=== PATIENT | male | born 1955 | race Caucasian/White ===

== ENCOUNTER 2017-01-26 15:41 | Inpatient (IN) | payer MEDICARE, MEDICAID ==
[~2017-01-26] VITALS: Ht 170.2 cm; Wt 61.0 kg
[2017-01-26 15:47] VITALS: BP 173/80; PULSE 72; RESP 16; TEMP 98.1; O2SAT 95
[2017-01-26] MEDS ORDERED: GABA300C5 PO ×2 (15:58)
--- NOTE | 2017-01-26 16:22 | PD ---
HPI Chief Complaint: Injury Time Seen by Provider: 15:55 Travel History International Travel<30 days: No Contact w/Intl Traveler<30days: No Traveled to known affect area: No History of Present Illness HPI patient is a 61-year-old male presents emergency department for evaluation of left wrist pain for the past 3 days. Patient states that 3 days ago he fell backwards landing on outstretched hands had left wrist pain since then. He has been able to go to work and worked through his pain but now that it started to swell he decided to come in and be seen. No numbness and tingling, location is left distal radius, no radiation. Context as above. No head neck or back pain. States he does have a history of multiple sclerosis and chronic decreased vision. PFSH Past Medical History Hx Anticoagulant Therapy: No Diabetes: No Diminished Hearing: No Medical other: Yes (MULTIPLE SCLEROSIS) Influenza Vaccination: No Past Surgical History Surgical History: No Previous Surgery Social History Alcohol Use: Yes Tobacco Use: No Allergies-Medications (Allergen,Severity, Reaction): Coded Allergies: No Known Allergies (Unverified , 01/26/17) Reported Meds & Prescriptions Reported Meds & Active Scripts Active Reported Gabapentin 600 Mg Tab 600 Mg PO TID Review of Systems Except as stated in HPI: all other systems reviewed are Neg Physical Exam Narrative GENERAL: Well-developed well-nourished no obvious distress SKIN: Focused skin assessment warm/dry. HEAD: Atraumatic. Normocephalic. EYES: Pupils equal and round. No scleral icterus. No injection or drainage. ENT: No nasal bleeding or discharge. Mucous membranes pink and moist. NECK: Trachea midline. No JVD. CARDIOVASCULAR: Regular rate and rhythm. No murmur appreciated. RESPIRATORY: No accessory muscle use. Clear to auscultation. Breath sounds equal bilaterally. GASTROINTESTINAL: Abdomen soft, non-tender, nondistended. Hepatic and splenic margins not palpable. MUSCULOSKELETAL: Is an obvious deformity at the left wrist, some volar angulation. Pulses motor and sensory intact distally. Cap refill is brisk. All flexor and extensor tendons are intact in the fingers wrist. Small hematoma forming at the distal radius for compartments are soft. Elbow atraumatic. NEUROLOGICAL: Awake and alert. No obvious cranial nerve deficits. Motor grossly within normal limits. Normal speech. PSYCHIATRIC: Appropriate mood and affect; insight and judgment normal. Data Data Last Documented VS Vital Signs Date Time Temp Pulse Resp B/P (MAP) Pulse Ox O2 Delivery O2 Flow Rate FiO2 01/26/17 19:19 62 18 163/83 (109) 97 Room Air 01/26/17 17:44 2.00 01/26/17 15:47 98.1 Orders Orders Wrist, Complete ([id number]) (01/26/17 ) Lidocaine 1% Inj (50 Ml) (Xylocaine 1% I (01/26/17 16:45) Iv Access Insert/Monitor (01/26/17 17:19) Oximetry (01/26/17 17:19) Morphine Inj (Morphine Inj) (01/26/17 17:30) Ondansetron Inj (Zofran Inj) (01/26/17 17:30) Sodium Chloride 0.9% Flush (Ns Flush) (01/26/17 17:30) Propofol 500 Mg/50 Ml Inj (Diprivan 500 (01/26/17 18:00) Sodium Chlorid 0.9% 500 Ml Inj (Ns 500 M (01/26/17 18:00) Propofol 200 Mg/20 Ml Inj (Diprivan 200 (01/26/17 18:00) Wrist, Limited (Ap&Lat) (01/26/17 ) Consult Orthopedic (01/26/17 ) Ct Wrist W/O Contrast (01/26/17 ) Electrocardiogram (01/26/17 ) Chest, Single Ap (01/26/17 ) Admit Order (Ed Use Only) (01/26/17 ) MDM Medical Decision Making Medical Screen Exam Complete: Yes Emergency Medical Condition: Yes Differential Diagnosis Wrist fracture, radius fracture, ulnar fracture, compartment syndrome excluded clinically. Narrative Course Patient roomed emerged permit, after informed consent the patient had reduction performed, suboptimal reduction. X-rays does show comminuted distal radius and ulnar styloid fracture, there are intra-articular components. Pulses motor and sensory were confirmed after the reduction, patient discussed with Dr. Lutz and will be slotted for surgery tomorrow morning. Nothing by mouth after midnight. We'll discuss with the hospitalist on-call for admission to the main hospital. Procedures Procedure Narrative After informed consent, all risks benefits competitions and alternatives were discussed with the patient for both sedation and reduction the patient agreed to the following procedure. ORTHOPEDIC REDUCTION: With procedural sedation being performed by Dr. Chavira the patient underwent a hematoma block with 1% lidocaine, this was insufficient to control his pain, during procedural sedation the patient had standard traction countertraction and the little manipulation of the distal radius with pressure on the Don[place]ue aspect, grossly somewhat straighter the patient was placed in a sugar tong splint, pulse motor and sensory were confirmed after sedation had completed and patient regained consciousness. No untoward event suffered. Diagnosis Primary Impression: Distal radius fracture, left Qualified Codes: S52.572A - Other intraarticular fracture of lower end of left radius, initial encounter for closed fracture Admitting Information Admitting Physician Requests: Admit Scripts Hydrocodone/Acetaminophen (Hydrocodone-Acetamin 10-325 mg) 10 Mg-325 Mg Tablet 1 TAB PO Q6H Y for PAIN LESS THAN 5 ON SCALE, #50 TAB Prov: William Robles MD 01/27/17 Hydrocodone-Acetaminophen (M[place]arley) 10-325 Mg Tab 1 TAB PO Q4H Y for PAIN, #50 TAB 0 Refills Prov: William Robles MD 01/27/17 Condition: Stable Richmond Durán MD Jan 26, 2017 16:22
[2017-01-26] MEDS ORDERED: LIDOCAINE HCL 1% 50 ML VIAL INFIL ONE (16:45)
--- NOTE | 2017-01-26 17:04 | RADRPT ---
EXAM DATE/TIME: 01/26/2017 16:40 [facility] COMPARISON: No previous studies available for comparison. INDICATIONS : Trauma, fall. MEDICAL HISTORY : None. SURGICAL HISTORY : None. ENCOUNTER: Initial ACUITY: 1 day PAIN SCORE: 10/10 LOCATION: Left wrist FINDINGS: There is a fracture of the distal radius with intra-articular extension and 45 ventral in relation o f the apex of the fracture. Ulnar styloid fracture is also present. The carpal bones are intact. CONCLUSION: 1. Fracture distal radius and ulna as above Bill Marion MD on January 26, 2017 at 17:01 Board Certified Radiologist. This report was verified electronically.
[2017-01-26] MEDS ORDERED: MORPHINE SULFATE 4 MG/ML INJ IV PUSH ONE (17:30)
[2017-01-26] MEDS ORDERED: SODIUM CHLORIDE 0.9% FLUSH 10 ML FLUSH IV FLUSH PRN ×2 (17:30→20:00)
[2017-01-26] MEDS ORDERED: ONDANSETRON HCL 4 MG/2 ML VIAL IVP ONE (17:30)
[2017-01-26 17:44] VITALS: BP 165/96; PULSE 70; RESP 18; O2SAT 97
[2017-01-26 17:45] VITALS: RESP 18; O2SAT 97
[2017-01-26] MEDS ORDERED: SODIUM CHLORID 0.9% 500 ML INJ 500 ML IV ONE (18:00)
[2017-01-26] MEDS ORDERED: PROPOFOL 200 MG/20 ML AMP IV ONE (18:00)
[2017-01-26] MEDS ORDERED: PROPOFOL 500 MG/50 ML BTL IV ONE (18:00)
--- NOTE | 2017-01-26 18:39 | RADRPT ---
EXAM DATE/TIME: 01/26/2017 18:23 [facility] COMPARISON: WRIST LEFT COMPLETE ([id number]), January 26, 2017, 16:40. INDICATIONS : Post reduction left wrist. MEDICAL HISTORY : None. SURGICAL HISTORY : None. ENCOUNTER: Initial ACUITY: 1 day PAIN SCORE: 7/10 LOCATION: Left distal wrist. FINDINGS: There is persistent displacement and dorsal angulation of the distal radial fragments status post yordy sed reduction. Acute mildly displaced ulnar styloid process fracture is also noted. CONCLUSION: 1. Persistent displacement and dorsal angulation of the distal radial fragments status post closed re duction. 2. Acute mildly displaced ulnar styloid process fracture. Richmond Bates MD on January 26, 2017 at 18:36 Board Certified Radiologist. This report was verified electronically.
[2017-01-26 19:19] VITALS: BP 163/83; PULSE 62; RESP 18; O2SAT 97
--- NOTE | 2017-01-26 19:23 | PD ---
Physical Exam Narrative GENERAL: SKIN: Warm and dry. HEAD: Atraumatic. Normocephalic. EYES: Pupils equal and round. No scleral icterus. No injection or drainage. ENT: No nasal bleeding or discharge. Mucous membranes pink and moist. NECK: Trachea midline. No JVD. CARDIOVASCULAR: Regular rate and rhythm. RESPIRATORY: No accessory muscle use. Clear to auscultation. Breath sounds equal bilaterally. GASTROINTESTINAL: Abdomen soft, non-tender, nondistended. MUSCULOSKELETAL: Extremities without clubbing, cyanosis, or edema...DEFORMITY TO LEFT WRIST DORSAL ASPECT NEUROLOGICAL: Awake and alert. No obvious cranial nerve deficits. Motor grossly within normal limits. Five out of 5 muscle strength in the arms and legs. Normal speech. PSYCHIATRIC: Appropriate mood and affect; insight and judgment normal. Data Data Last Documented VS Vital Signs Date Time Temp Pulse Resp B/P (MAP) Pulse Ox O2 Delivery O2 Flow Rate FiO2 01/26/17 17:46 18 01/26/17 17:45 97 Room Air 01/26/17 17:44 70 2.00 01/26/17 15:47 98.1 Orders Orders Wrist, Complete ([id number]) (01/26/17 ) Lidocaine 1% Inj (50 Ml) (Xylocaine 1% I (01/26/17 16:45) Iv Access Insert/Monitor (01/26/17 17:19) Oximetry (01/26/17 17:19) Morphine Inj (Morphine Inj) (01/26/17 17:30) Ondansetron Inj (Zofran Inj) (01/26/17 17:30) Sodium Chloride 0.9% Flush (Ns Flush) (01/26/17 17:30) Propofol 500 Mg/50 Ml Inj (Diprivan 500 (01/26/17 18:00) Sodium Chlorid 0.9% 500 Ml Inj (Ns 500 M (01/26/17 18:00) Propofol 200 Mg/20 Ml Inj (Diprivan 200 (01/26/17 18:00) Wrist, Limited (Ap&Lat) (01/26/17 ) Consult Orthopedic (01/26/17 ) [facility] Medical Record Reviewed: Yes Supervised Visit with HELENA: No Narrative Course MALLAMPATI 1, DURING OBSERVATION PERIOD, PATIENT MAINTAINED HIS AIRWAY WITH SPONTANEOUS BREATH AND MAINTAINED PULSE OX 94% AT ITS LOWEST, AND WHEN PATIENT WAS AT ITS DEEPEST SEDATION, SUPPLEMENTAL OXYGEN AND JAW THRUST IMPROVED PULSE OX TO 96% AND ONLY REQUIRED THIS MANEUVER ONCE DURING THE PROCEDURE. PATIENT RECOVERED WELL ON HIS OWN WITH 96-98 % AT FIRST ON SUPPLEMENTAL OXYGEN BUT EVENTUALLY OXYGEN FREE PATIENT MAINTAINED NORMAL PULSE OX AT 96-99% RA WITH GOOD PLETH WAVE. SEE DR BENSON'S NOTE FOR MORE COMPLETE DICTATION THIS IS A CONSCIOUS SEDATION NOTE. Procedures Procedure Narrative The patient was placed on a nurse monitoring and pulse oximetry. An ambu bag and suction was immediately available at bedside. The patient was monitored by the nurse. Oxygen saturation, heart rate and blood pressure were monitored. Procedural sedation was acheived using [PROPOFOL 100MG]. The patient was observed until awake and alert. Procedural Sedation time in attendance was [30] minutes. Diagnosis Primary Impression: S/P CONSCIOUS SEDATION WITH SUCCESSFUL RECOVERY Hector Chavira MD Jan 26, 2017 19:23
[2017-01-26] MEDS ORDERED: GABA600T PO (19:38)
[2017-01-26] MEDS ORDERED: ONDANSETRON HCL 4 MG/2 ML VIAL IVP PRN (20:00)
[2017-01-26] MEDS ORDERED: MORPHINE SULFATE 2 MG/ML INJ IV PUSH PRN (20:00)
[2017-01-26] MEDS ORDERED: NALOXONE HCL 0.4 MG/ML AMP IV PUSH PRN (20:00)
--- NOTE | 2017-01-26 20:37 | RADRPT ---
EXAM DATE/TIME: 01/26/2017 19:41 [facility] COMPARISON: No previous studies available for comparison. INDICATIONS : Trauma, fall. RADIATION DOSE: 13.01 CTDIvol (mGy) MEDICAL HISTORY : None SURGICAL HISTORY : None. ENCOUNTER: Initial ACUITY: 1 week PAIN SCALE: 10/10 LOCATION: Left wrist TECHNIQUE: Volumetric scanning of the wrist was performed. Using automated exposure control and adjustment of t he mA and/or kV according to patient size, radiation dose was kept as low as reasonably achievable to obtain optimal diagnostic quality images. DICOM format image data is available electronically for review and comparison. FINDINGS: An acute comminuted minimally impacted fracture of the distal radius is noted. There is involvement o f the articular surface with approximately 1 mm of articular step off noted. There is also an acute m ildly displaced ulnar styloid process fracture. The carpal bones are intact without fracture or dislo cation. CONCLUSION: 1. Acute comminuted minimally impacted fracture of the distal radius with approximately 1 mm of artic ular step-off noted. 2. Acute mildly displaced ulnar styloid process fracture. Richmond Bates MD on January 26, 2017 at 20:32 Board Certified Radiologist. This report was verified electronically.
[2017-01-26] MEDS ORDERED: GABAPENTIN 300 MG CAP PO ONE ×3 (20:45→23:00)
[2017-01-26] MEDS ORDERED: GABAPENTIN 100 MG CAP PO ONE (20:45)
[2017-01-26] MEDS: SODIUM CHLORIDE 0.9% FLUSH 10 ML FLUSH IV FLUSH SCH (20:50)
[2017-01-26 21:38] VITALS: BP 138/87; PULSE 69; RESP 18; O2SAT 96
--- NOTE | 2017-01-26 21:54 | RADRPT ---
EXAM DATE/TIME: 01/26/2017 19:38 [facility] COMPARISON: No previous studies available for comparison. INDICATIONS : Short of breath. MEDICAL HISTORY : None. SURGICAL HISTORY : None. ENCOUNTER: Initial ACUITY: 1 day PAIN SCORE: 0/10 LOCATION: Bilateral chest FINDINGS: A single view of the chest demonstrates the lungs to be symmetrically aerated without evidence of mas s, infiltrate or effusion. Calcified granulomas noted within the left midlung field. The cardiomedia stinal contours are unremarkable. Osseous structures are intact. CONCLUSION: No acute focal pulmonary infiltrate or pulmonary vascular congestion. Calcified granuloma within the left midlung field. Richmond Bates MD on January 26, 2017 at 21:52 Board Certified Radiologist. This report was verified electronically.
[2017-01-27 00:07] VITALS: BP 140/88
[2017-01-27 00:30] VITALS: BP 149/80; PULSE 57; RESP 20; TEMP 98.9; O2SAT 97
[2017-01-27] MEDS ORDERED: INSULIN HUMAN REGULAR 1,000 UNITS/10 ML VIAL SQ PRN (01:00)
[2017-01-27] MEDS ORDERED: METOPROLOL TARTRATE 25 MG TAB PO PRN (01:00)
[2017-01-27] MEDS ORDERED: POVIDONE IODINE 5% (ANTISEPSIS KIT) 4 APPLICATIONS EACH NARE PRN (01:00)
[2017-01-27] MEDS ORDERED: SODIUM CHLORID 0.9% 500 ML IV PRN (01:00)
[2017-01-27] MEDS ORDERED: CHLORHEXIDINE GLUCONATE 2 % 1 PACK (2 CLOTHS) TOPICAL PRN (01:00)
[2017-01-27] MEDS ORDERED: LACTATED RINGER'S 1000 ML IV PRN (01:00)
[2017-01-27 04:00] VITALS: BP 139/76; PULSE 56; RESP 20; TEMP 98.2; O2SAT 97
[2017-01-27] MEDS ORDERED: ACETAMINOPHEN 1000 MG/100 ML 100 ML IV ONE (05:55)
[2017-01-27 06:00] LABS: AUTOMATED NEUTROPHIL # 3.2 TH/MM3 (1.8-7.7); BASOPHIL % 0.5 % (0.0-2.0); EOSINOPHIL # 0.2 TH/MM3 (0-0.4); EOSINOPHIL % 2.9 % (0.0-4.0); HEMATOCRIT 37.2 % (39.0-51.0); HEMO FLAGS DIFF FINAL; LYMPH % 21.4 % (9.0-44.0); LYMPHOCYTE # 1.1 TH/MM3 (1.0-4.8); MEAN CELL VOLUME 93.8 FL (80.0-100.0); MEAN CORPUSCULAR HEMOGLOBIN 31.7 PG (27.0-34.0); MEAN CORPUSCULAR HGB CONC 33.8 % (32.0-36.0); MONO % 15.5 % (0.0-8.0); NEUT % 59.7 % (16.0-70.0); PLATELET COUNT 291 TH/MM3 (150-450); RED BLOOD COUNT 3.96 MIL/MM3 (4.50-5.90); RED CELL DISTRIBUTION WIDTH 12.5 % (11.6-17.2); WHITE BLOOD COUNT 5.3 TH/MM3 (4.0-11.0)
--- NOTE | 2017-01-27 06:12 | PD.CONS ---
HPI Service Orthopedic Surgeons Consult Requested By Medical staff, attending physician Reason for Consult Fracture of the left wrist Primary Care Physician No Primary Care Physician Admission Diagnosis Wrist Fracture. Diagnoses: Chief Complaint: Left wrist pain History of Present Illness This patient is a 61-year-old white male who approximately 3 days ago tripped and fell on outstretched left wrist. He had swelling and pain but was trying to splint this , but he noted increasing discomfort. He presented to [facility]. He is evaluated and treated in the emergency room. He was transferred to [facility]. I have been asked to see him in consultation for his left wrist fracture Review of Systems Constitutional: DENIES: Diaphoretic episodes, Fatigue, Fever, Weight gain, Weight loss, Chills, Dizziness, Change in appetite, Night Sweats Endocrine: DENIES: Heat/cold intolerance, Polydipsia, Polyuria, Polyphagia Eyes: COMPLAINS OF: Blurred vision Ears, nose, mouth, throat: DENIES: Tinnitus, Hearing loss, Vertigo, Nasal discharge, Oral lesions, Throat pain, Hoarseness, Ear Pain, Running Nose, Epistaxis, Sinus Pain, Toothache, Odynophagia Respiratory: DENIES: Apneas, Cough, Snoring, Wheezing, Hemoptysis, Sputum production, Shortness of breath Cardiovascular: DENIES: Chest pain, Palpitations, Syncope, Dyspnea on Exertion , PND, Lower Extremity Edema, Orthopnea, Claudication Gastrointestinal: DENIES: Abdominal pain, Black stools, Bloody stools, Constipation, Diarrhea, Nausea, Vomiting, Difficulty Swallowing, Anorexia Genitourinary: DENIES: Sexual dysfunction, Urinary frequency, Urinary incontinence, Urgency, Hematuria, Dysuria, Nocturia, Penile Discharge, Testicular Pain, Testicular Swelling Musculoskeletal: COMPLAINS OF: Joint pain Integumentary: DENIES: Abnormal pigmentation, Nail changes, Pruritus, Rash Immunologic/allergic: DENIES: Eczema, Urticaria Neurologic: COMPLAINS OF: Poor Balance Psychiatric: DENIES: Anxiety, Confusion, Mood changes, Depression, Hallucinations, Agitation, Suicidal Ideation, Homicidal Ideation, Delusions Past Family Social History Past Medical History MS Allergies: Coded Allergies: No Known Allergies (Unverified , 01/26/17) Active Ordered Medications Current Medications Medications (Trade) Dose Ordered Sig/Bel Route Start Time Stop Time Status Last Admin (NS Flush) 2 ml UNSCH PRN IV FLUSH 01/26/17 20:00 (NS Flush) 2 ml BID IV FLUSH 01/26/17 21:00 01/26/17 20:50 (Zofran Inj) 4 mg Q6H PRN IVP 01/26/17 20:00 (Narcan Inj) 0.4 mg UNSCH PRN IV PUSH 01/26/17 20:00 (Morphine Inj) 2 mg Q3H PRN IV PUSH 01/26/17 20:00 Lactated Ringer's 1,000 ml @ 30 mls/hr Q24H PRN IV 01/27/17 01:00 01/30/17 00:59 01/27/17 03:02 Sodium Chloride 500 ml @ 30 mls/hr [id number] PRN IV 01/27/17 01:00 01/30/17 00:59 (Lopressor) 25 mg [employer] PRN PO 01/27/17 01:00 01/30/17 00:59 (Betadine 5% Antisepsis Kit) 1 applic [employer]IST PRN EACH NARE 01/27/17 01:00 01/30/17 00:59 (Chlorhexidine 2% Cloth) 3 pack [employer] PRN TOPICAL 01/27/17 01:00 01/30/17 00:59 (NovoLIN R INJ) See Protocol Table ... [employer]ATIONS [employer]IST PRN SQ 01/27/17 01:00 01/30/17 00:59 Reported Meds & Active Scripts Active Reported Gabapentin 600 Mg Tab 600 Mg PO TID Physical Exam Vital Signs Vital Signs Date Time Temp Pulse Resp B/P (MAP) Pulse Ox O2 Delivery O2 Flow Rate FiO2 01/27/17 04:00 98.2 56 20 139/76 (97) 97 01/27/17 00:30 98.9 57 20 149/80 (103) 97 01/27/17 00:07 70 18 140/88 (105) 96 01/26/17 21:38 69 18 138/87 (104) 96 Room Air 01/26/17 19:19 62 18 163/83 (109) 97 Room Air 01/26/17 17:46 18 126/17 17:45 18 97 Room Air 01/26/17 17:44 70 18 165/96 (119) 97 Nasal Cannula 2.00 01/26/17 15:47 98.1 72 16 173/80 (111) 95 Physical Exam HEENT: Normocephalic atraumatic pupils equal round reactive. NECK: Supple. No abnormal masses. Full range of motion. CHEST: Clear to auscultation with no rales or rhonchi's or wheezes. HEART: Regular rate and rhythm. No murmurs. ABDOMEN: Soft, nontender, no masses. Normal active bowel sounds. GENITOURINARY: Deferred. Musculoskeletal: Left wrist is in a splint. Sensation is almost normal. Mild swelling. Normal alignment. Laboratory Laboratory Tests Test 01/27/17 05:40 Imaging X-rays and CT of the left wrist shows evidence of an intra-articular distal radius fracture with displacement. This is a 3 part fracture. This is consistent with radiologist's interpretation Assessment & Plan Assessment and Plan Intra-articular fracture left distal radius, displaced, three-part. PLAN: Surgical treatment: Open treatment internal fixation left wrist fracture with volar plates and screws. Consent: There are risks with surgery including infection, bleeding, loss of motion, need for further surgery, neurologic or vascular injury, failure of fixation, nonunion. He understands these issues and wishes to proceed forward with surgery as outlined above. Surgical treatment today William Robles MD Jan 27, 2017 06:12
[2017-01-27 06:15] LABS: BICARBONATE 28.2 MEQ/L (21.0-32.0); POTASSIUM 3.8 MEQ/L (3.5-5.1)
[2017-01-27] MEDS ORDERED: ceFAZolin 2 GM PREMIX 50 ML ONE (06:42)
[2017-01-27] MEDS ORDERED: LACTATED RINGER'S 1000 ML INJ 1,000 ML IV SCH (07:17)
[2017-01-27] MEDS ORDERED: HYDR-3366 PO (07:19)
[2017-01-27] MEDS ORDERED: HYDR-3583 PO (07:22)
[2017-01-27] MEDS ORDERED: NALOXONE HCL 0.4 MG/ML AMP IV PUSH PRN (07:30)
[2017-01-27] MEDS ORDERED: MAGNESIUM HYDROXIDE SUSP 30 ML CUP PO PRN (07:30)
[2017-01-27] MEDS ORDERED: MORPHINE SULFATE 8 MG/ML INJ IV PUSH PRN (07:30)
[2017-01-27] MEDS ORDERED: MORPHINE SULFATE 30 MG/30 ML PCA IV SCH (07:30)
[2017-01-27] MEDS ORDERED: ONDANSETRON HCL 4 MG/2 ML VIAL IVP PRN (07:30)
[2017-01-27] MEDS ORDERED: diphenhydrAMINE HCL 25 MG CAP PO PRN (07:30)
[2017-01-27] MEDS ORDERED: ACETAMINOPHEN/HYDROcodone 325 MG/10 MG TAB PO PRN ×2 (07:30)
[2017-01-27] MEDS ORDERED: Post-op Orders (for Pharmacy) MISC XX ONE (07:30)
[2017-01-27] MEDS ORDERED: DO NOT ADM ANY ANTICOAGULANT DRUGS PRN (07:38)
[2017-01-27] MEDS ORDERED: *morphine SULFATE 8 MG/ML PERIprocedure ONLY ONE ×2 (07:47→08:23)
[2017-01-27 09:00] VITALS: BP 166/87; PULSE 67; RESP 19; TEMP 97.4; O2SAT 95
[2017-01-27] MEDS ORDERED: MULTIVITAMINS/MINERALS THERAPEUTIC TAB PO SCH (09:00)
[2017-01-27] MEDS: SODIUM CHLORIDE 0.9% FLUSH 10 ML FLUSH IV FLUSH SCH (09:00)
[2017-01-27] MEDS ORDERED: DOCUSATE SODIUM 50 MG/SENNA 8.6 MG TAB PO SCH (09:00)
--- NOTE | 2017-01-27 09:19 | RADRPT ---
EXAM DATE/TIME: 01/27/2017 07:09 [facility] COMPARISON: WRIST LEFT LIMITED (AP & LAT), January 26, 2017, 18:23. INDICATIONS : Fracture Lt. wrist ORIF. MEDICAL HISTORY : None. SURGICAL HISTORY : None. ENCOUNTER: Initial ACUITY: 1 day PAIN SCORE: Non-responsive. LOCATION: Left wrist FINDINGS: There are postsurgical changes with operative reduction and internal fixation of the previously seen fracture. The alignment is anatomic. CONCLUSION: Postsurgical changes as above. Bill Marion MD on January 27, 2017 at 9:17 Board Certified Radiologist. This report was verified electronically.
--- NOTE | 2017-01-27 10:42 | PD.OP ---
cc: William Robles MD Operative Report Date of Surgery: Jan 27, 2017 Preoperative Diagnosis: Left distal radius fracture, three-part, intra-articular Postoperative Diagnosis: Same Procedure: Open treatment internal fixation left distal radius fracture with volar plate and screws, 3 part fracture Anesthesia: Gen. Surgeon: William Robles Training Designer(s): Staff Operation and Findings: EBL: 50 cc INDICATION: This patient is a 61-year-old white male who 3 or 4 days ago sustained the above fracture. He presents for surgical treatment PROCEDURE: The patient was brought to the operating room and anesthetized in the supine position. This patient was positioned with the arm on the arm table. Fluoroscopy was used for visualization. A timeout was done. Antibiotics were given within 1 hour time window. The left arm was scrubbed with alcohol followed by Hibiclens followed by ChloraPrep and draped sterilely. A tourniquet was placed after exsanguination the tourniquet was inflated to 250 mmHg. A volar incision was made along the flexor carpi radialis tendon. The pronator quadratus was lifted from its radial attachment. The fracture was visualized. This was brought into a reduced position and held. A volar plate was positioned and held provisionally. Intraoperative x-ray showed anatomic alignment. Multiple distal locking screws were placed as well as shaft screws. The fracture was reduced anatomically. Intraoperative x-rays were obtained confirming the same. The tourniquet was let down. Hemostasis was controlled with the bipolar cautery. The wound was dry. The fascia was closed with 2-0 Vicryl suture. The skin and subcutaneous tissue was approximated with interrupted 3-0 nylon in a mattress fashion. A sterile dressing and a splint was applied. The patient was awakened and taken to the recovery room in satisfactory condition. COMPANY: [employer] medium 3-hole volar plate William Robles MD Jan 27, 2017 10:41
[2017-01-27 12:00] VITALS: BP 109/69; PULSE 90; RESP 19; TEMP 97.1; O2SAT 95
[2017-01-27] MEDS ORDERED: PCA - TOTAL MG MORPHINE DELIVERED PER SHIFT SCH (14:00)
--- NOTE | 2017-01-27 15:53 | HHI.HP ---
HPI Service [facility] ([place], [place])ists Primary Care Physician No Primary Care Physician Admission Diagnosis Wrist Fracture. Diagnoses: Travel History International Travel<30 Days: No Contact w/Intl Traveler <30 Da: No Traveled to Known Affected Are: No History of Present Illness This is a 61-year-old white male with states that approximately 3 days ago he tripped and fell on an outstretched left wrist. The patient states that he had swelling and pain and was trying to splint the wrist but he noticed increased discomfort. The pain was 10 over 10, nonradiating and localized to the left breast. The patient was seen in emergency department in [place] and transferred to [facility] in [place]. Orthopedic surgery saw the patient in consultation today and the patient underwent ORIF of the left wrist fracture. The patient currently denies any chest pain, shortness of breath, nausea, vomiting, diarrhea, dizziness, fevers, chills and he states that the pain is much improved. Review of Systems As per HPI, other systems reviewed by me and negative Past Family Social History Past Medical History MS Past Surgical History Denies Reported Medications Reported Meds & Active Scripts Active Hydrocodone-Acetamin 10-325 mg (Hydrocodone/Acetaminophen) 10 Mg-325 Mg Tablet 1 Tab PO Q6H PRN Crestline (Hydrocodone-Acetaminophen) 10-325 Mg Tab 1 Tab PO Q4H PRN Reported Gabapentin 600 Mg Tab 600 Mg PO TID Allergies: Coded Allergies: No Known Allergies (Unverified , 01/26/17) Active Ordered Medications Current Medications Medications (Trade) Dose Ordered Sig/Bel Route Start Time Stop Time Status Last Admin (NS Flush) 2 ml UNSCH PRN IV FLUSH 01/26/17 20:00 (NS Flush) 2 ml BID IV FLUSH 01/26/17 21:00 01/26/17 20:50 (Zofran Inj) 4 mg Q6H PRN IVP 01/26/17 20:00 (Narcan Inj) 0.4 mg UNSCH PRN IV PUSH 01/26/17 20:00 (Morphine Inj) 2 mg Q3H PRN IV PUSH 01/26/17 20:00 Lactated Ringer's 1,000 ml @ 30 mls/hr Q24H PRN IV 01/27/17 01:00 01/30/17 00:59 01/27/17 03:02 Sodium Chloride 500 ml @ 30 mls/hr [id number] PRN IV 01/27/17 01:00 01/30/17 00:59 (Lopressor) 25 mg FOLD SKIVER PRN PO 01/27/17 01:00 01/30/17 00:59 (Betadine 5% Antisepsis Kit) 1 applic FOLD SKIVER PRN EACH NARE 01/27/17 01:00 01/30/17 00:59 (Chlorhexidine 2% Cloth) 3 pack FOLD SKIVER PRN TOPICAL 01/27/17 01:00 01/30/17 00:59 (NovoLIN R INJ) See Protocol Table ... FOLD SKIVER PRN SQ 01/27/17 01:00 01/30/17 00:59 Lactated Ringer's 1,000 ml @ 85 mls/hr [id number] IV 01/27/17 07:17 01/27/17 08:15 (Larisa-Colace) 1 tab BID PO 01/27/17 09:00 01/27/17 11:11 (Milk Of Magnesia Liq) 10 ml Q12H PRN PO 01/27/17 07:30 Cefazolin Sodium 1000 mg/Sodium Chloride 100 ml @ 200 mls/hr Q8H IV 01/27/17 15:00 (Crestline 10-325 Mg) 1 tab Q6H PRN PO 01/27/17 07:30 (Crestline 10-325 Mg) 2 tab Q6H PRN PO 01/27/17 07:30 (Morphine Inj) 5 mg Q4H PRN IV PUSH 01/27/17 07:30 (Zofran Inj) 4 mg Q4H PRN IVP 01/27/17 07:30 (Theragran M Tab) 1 tab DAILY PO 01/27/17 09:00 01/27/17 11:11 (Benadryl) 25 mg Q6H PRN PO 01/27/17 07:30 (Ambien) 5 mg HS PRN PO 01/27/17 21:00 (Narcan Inj) 0.4 mg UNSCH PRN IV PUSH 01/27/17 07:30 (Morphine 1 Mg/ ml TREAD CUTTER) 30 mg UNSCH IV 01/27/17 07:30 01/27/17 08:31 TREAD CUTTER Dosage Infused (Pha) 1 Q8HR .XX 01/27/17 14:00 Miscellaneous Information ALL NURSING DEPARTME... UNSCH PRN .XX 01/27/17 07:38 01/28/17 07:37 Family History Father from a massive heart attack in his 60's. Social History Denies smoking, driking alcohol or using illegal drugs Physical Exam Vital Signs Vital Signs Date Time Temp Pulse Resp B/P (MAP) Pulse Ox O2 Delivery O2 Flow Rate FiO2 01/27/17 09:00 97.4 67 19 166/87 (113) 95 01/27/17 08:31 16 01/27/17 08:30 97.8 64 18 152/89 (110) 96 Room Air 01/27/17 08:15 69 18 155/88 (110) 94 Room Air 01/27/17 08:00 73 16 150/96 (114) 95 Room Air 01/27/17 07:45 79 16 150/93 (112) 94 Room Air 01/27/17 07:38 97.5 83 16 158/92 (114) 94 Room Air 01/27/17 04:00 98.2 56 20 139/76 (97) 97 01/27/17 00:30 98.9 57 20 149/80 (103) 97 01/27/17 00:07 70 18 140/88 (105) 96 01/26/17 21:38 69 18 138/87 (104) 96 Room Air 01/26/17 19:19 62 18 163/83 (109) 97 Room Air 01/26/17 17:46 18 01/26/17 17:45 18 97 Room Air 01/26/17 17:44 70 18 165/96 (119) 97 Nasal Cannula 2.00 Physical Exam GENERAL: This is a well-nourished, well-developed patient, in no apparent distress. SKIN: No rashes, ecchymoses or lesions. Cool and dry. HEAD: Atraumatic. Normocephalic. No temporal or scalp tenderness. EYES: Pupils equal round and reactive. Extraocular motions intact. No scleral icterus. No injection or drainage. ENT: Nose without bleeding, purulent drainage or septal hematoma. Throat without erythema, tonsillar hypertrophy or exudate. Uvula midline. Airway patent. NECK: Trachea midline. No JVD or lymphadenopathy. Supple, nontender, no meningeal signs. CARDIOVASCULAR: Regular rate and rhythm without murmurs, gallops, or rubs. RESPIRATORY: Clear to auscultation. Breath sounds equal bilaterally. No wheezes , rales, or rhonchi. GASTROINTESTINAL: Abdomen soft, non-tender, nondistended. No hepato-splenomegaly , or palpable masses. No guarding. MUSCULOSKELETAL: Left arm on a sliding, wrapped around. There is good capillary refills on left fingers. Other Extremities without clubbing, cyanosis , or edema. No joint tenderness, effusion, or edema noted. No calf tenderness. Negative Homans sign bilaterally. NEUROLOGICAL: Awake and alert. Cranial nerves II through XII intact. Motor and sensory grossly within normal limits. Five out of 5 muscle strength in all muscle groups. Normal speech. Laboratory Laboratory Tests Test 01/27/17 05:40 White Blood Count 5.3 Red Blood Count 3.96 Hemoglobin 12.6 Hematocrit 37.2 Mean Corpuscular Volume 93.8 Mean Corpuscular Hemoglobin 31.7 Mean Corpuscular Hemoglobin Concent 33.8 Red Cell Distribution Width 12.5 Platelet Count 291 Mean Platelet Volume 8.3 Neutrophils (%) (Auto) 59.7 Lymphocytes (%) (Auto) 21.4 Monocytes (%) (Auto) 15.5 Eosinophils (%) (Auto) 2.9 Basophils (%) (Auto) 0.5 Neutrophils # (Auto) 3.2 Lymphocytes # (Auto) 1.1 Monocytes # (Auto) 0.8 Eosinophils # (Auto) 0.2 Basophils # (Auto) 0.0 CBC Comment DIFF FINAL Differential Comment Blood Urea Nitrogen 14 Creatinine 0.95 Random Glucose 92 Calcium Level 8.4 Sodium Level 139 Potassium Level 3.8 Chloride Level 104 Carbon Dioxide Level 28.2 Anion Gap 7 Estimat Glomerular Filtration Rate 80 Result Diagram: 01/27/17 0540 01/27/17 0540 Imaging Last Impressions Wrist X-Ray 01/27/17 0000 Signed Impressions: Service Date/Time: January 07:09 - CONCLUSION: Postsurgical changes as above. Bill Marion MD Upper Extremity CT 01/26/17 0000 Signed Impressions: Service Date/Time: Thursday, January 26, 2017 19:41 - CONCLUSION: 1. Acute comminuted minimally impacted fracture of the distal radius with approximately 1 mm of articular step-off noted. 2. Acute mildly displaced ulnar styloid process fracture. Richmond Bates MD Chest X-Ray 01/26/17 0000 Signed Impressions: Service Date/Time: Thursday, January 26, 2017 19:38 - CONCLUSION: No acute focal pulmonary infiltrate or pulmonary vascular congestion. Calcified granuloma within the left midlung field. Richmond Bates MD Caprini VTE Risk Assessment Caprini VTE Risk Assessment: No/Low Risk (score <= 1) Caprini Risk Assessment Model Point Value = 1 Point Value = 2 Point Value = 3 Point Value = 5 Age 41-60 Minor surgery BMI > 25 kg/m2 Swollen legs Varicose veins or History of unexplained or recurrent spontaneous Oral contraceptives or hormone replacement Sepsis (< 1 month) Serious lung disease, including pneumonia (< 1 month) Abnormal pulmonary function Acute myocardial infarction Congestive heart failure (< 1 month) History of inflammatory bowel disease Medical patient at bed rest Age 61-74 Arthroscopic surgery Major open surgery (> 45 min) Laparoscopic surgery (> 45 min) Malignancy Confined to bed (> 72 hours) Immobilizing plaster cast Central venous access Age >= 75 History of VTE Family history of VTE Factor V Leiden Prothrombin [id number] Lupus anticoagulant Anticardiolipin antibodies Elevated serum homocysteine Heparin-induced thrombocytopenia Other congenital or acquired thrombophilia Stroke (< 1 month) Elective arthroplasty Hip, pelvis, or leg fracture Acute spinal cord injury (< 1 month) Prophylaxis Regimen Total Risk Factor Score Risk Level Prophylaxis Regimen 0-1 Low Early ambulation 2 Moderate Order ONE of the following: *Sequential Compression Device (SCD) *Heparin 5000 units SQ BID 3-4 Higher Order ONE of the following medications: *Heparin 5000 units SQ TID *Enoxaparin/Lovenox 40 mg SQ daily (WT < 150 kg, CrCl > 30 mL/min) *Enoxaparin/Lovenox 30 mg SQ daily (WT < 150 kg, CrCl > 10-29 mL/min) *Enoxaparin/Lovenox 30 mg SQ BID (WT < 150 kg, CrCl > 30 mL/min) AND/OR *Sequential Compression Device (SCD) 5 or more Highest Order ONE of the following medications: *Heparin 5000 units SQ TID (Preferred with Epidurals) *Enoxaparin/Lovenox 40 mg SQ daily (WT < 150 kg, CrCl > 30 mL/min) *Enoxaparin/Lovenox 30 mg SQ daily (WT < 150 kg, CrCl > 10-29 mL/min) *Enoxaparin/Lovenox 30 mg SQ BID (WT < 150 kg, CrCl > 30 mL/min) AND *Sequential Compression Device (SCD) Assessment and Plan Problem List: (1) Distal radius fracture, left ICD Code: S52.502A - Unspecified fracture of the lower end of left radius, initial encounter for closed fracture Status: Acute (2) Multiple sclerosis ICD Code: G35 - Multiple sclerosis Assessment and Plan The patient was admitted to the medical floor and pain control provided with IV morphine. Continue pain control with Crestline. Patient on gabapentin for multiple sclerosis which is stable. Patient status post orthopedic surgery evaluation and ORIF of the left wrist. Patient has been cleared to discharged. BP noted to be elevated earlier, however last reading last bp 109/69. DVT prophylaxis: SCDs,. Orthopedic surgery. The patient to be discharge as per RN report. Follow-up with orthopedic surgery. Discharge patient to home Condition on discharge: Improved Regular Diet as tolerated Ad Suyapa activity Rx written: Crestline 10 - 325 mg take 1 tablet by mouth every 4 hours when necessary for pain. Follow-up with primary care physician and orthopedic surgery. Code Status Full code Discussed Condition With Patient, RN. Physician Certification 2 Midnight Certification Type: Admission for Inpatient Services Order for Inpatient Services The services are ordered in accordance with Medicare regulations or non- Medicare payer requirements, as applicable. In the case of services not specified as inpatient-only, they are appropriately provided as inpatient services in accordance with the 2-midnight benchmark. Estimated LOS (days): 2 days is the estimated time the patient will need to remain in the hospital, assuming treatment plan goals are met and no additional complications. Post-Hospital Plan: Home Problem Qualifiers (1) Distal radius fracture, left: Qualified Codes: S52.572A - Other intraarticular fracture of lower end of left radius, initial encounter for closed fracture Bhupendra Ramirez MD Jan 27, 2017 15:52
--- NOTE | 2017-01-27 15:56 | EKG ---
Date Performed: 01/26/2017 Time Performed: 19:33:10 PTAGE: 61 years EKG: SINUS BRADYCARDIA BORDERLINE ECG NO PREVIOUS TRACING DOCTOR: Pawan Cloud Interpretating Date/Time 01/27/2017 15:55:10
--- NOTE | 2017-01-27 15:59 | HHI.DCPOC ---
Discharge Care Plan Diagnosis: (1) Multiple sclerosis (2) Distal radius fracture, left Goals to Promote Your Health * To prevent worsening of your condition and complications * To maintain your health at the optimal level Directions to Meet Your Goals Take your medications as prescribed Follow your dietary instruction Follow activity as directed Keep your appointments as scheduled Take your immunizations and boosters as scheduled If your symptoms worsen call your PCP, if no PCP go to Urgent Care Center or Emergency Room Smoking is Dangerous to Your Health. Avoid second hand smoke Call the 24-hour hour crisis hotline for domestic abuse at Bhupendra Ramirez MD Jan 27, 2017 15:59
[2017-01-27 16:00] VITALS: BP 110/70; PULSE 85; RESP 19; TEMP 97; O2SAT 95
[2017-01-27] MEDS ORDERED: ZOLPIDEM TARTRATE 5 MG TAB PO PRN (21:00)
== END 2017-01-27 19:02 | disposition home or self-care (01) | DRG 512 ==
LOC: PHEFT 15:41 → PHEDA 19:24 → N06B 01-27 00:31
PROVIDERS: ADMIT Hospitalist; ATTEND Hospitalist
PROC: 0PSJXZZ Reposition Left Radius, External Approach (ICD-10-PCS; 2017-01-26)
PROC: 3E0T3BZ Introduction of Anesthetic Agent into Peripheral Nerves and Plexi, Percutaneous Approach (ICD-10-PCS; 2017-01-26)
PROC: 0PSJ04Z Reposition Left Radius with Internal Fixation Device, Open Approach (ICD-10-PCS; principal; 2017-01-27 06:11)
DX: S52.572A Other intraarticular fracture of lower end of left radius, initial encounter for closed fracture (principal); G35 Multiple sclerosis; H54.7 Unspecified visual loss; W01.0XXA Fall on same level from slipping, tripping and stumbling without subsequent striking against object, initial encounter
CPT/HCPCS: 71010; 73100; 73110; 73200; 76000; 80048; 85025; 93005; 94150; 94770; J0131; J0690; J2270; J2405; J7040; J7120